=== PATIENT | female | born 1995 | race American Indian/Alaskan Native ===

== ENCOUNTER 2023-10-24 08:40 | Inpatient (IN) | payer OTHER ==
[2023-10-24 09:41] LABS: HEMATOCRIT 37.6 % (35.0-50.0); HEMOGLOBIN 12.7 g/dL (12.0-18.0); MCH 30.5 (27-36); MCHC 33.8 g/dl (30-36); MCV 90.1 fl (81-99); RBC 4.17 M/ul (4.3-5.7); RDW 14.9 (10.5-15.0)
--- NOTE | 2023-10-24 09:44 | PR ---
[facility] [address] [facility] [place], [place] [address] Signed Progress Notes IP Datetime Report Generated by HAILEY: 10/24/2023 09:44 PROGRESS NOTES: [id number] Impression: Normal Progression of Labor Procedures: Artificial ROM; Sterile Vag Exam Plan: Continue Present Management; Anesthesia Consult VITAL SIGNS: [id number] Vital Signs: Reviewed; Within Normal Limits EXAM: [id number] Dilatation: 7.0 Effacement: 80 Station: -2 Contractions: q 5 min MEMBRANES: [id number] Comments: Progressing well. Would like epidural. FETUS A: [id number] FHR Baseline: 150 Variability: Moderate 6-25bpm Accelerations: 15X15 Decelerations: Late FHR Category: Category I Presentation: Vertex FETUS B: [id number] Signing Physician: Britni Ross MD Copies: ~ *Electronically Signed* 10/24/23 0944 BRITNI ROSS MD PATIENT NAME: CATHERINE BURTON PROGRESS NOTE DATE OF : 93 PHYSICIAN: BRITNI ROSS MD RPT #: [id number] REPORT IS CONFIDENTIAL AND NOT TO BE RELEASED WITHOUT AUTHORIZATION
[2023-10-24] MEDS ORDERED: MAGNESIUM HYDROXIDE/AL HYDROX 30 ML CUP PO PRN ×2 (09:45→11:30)
[2023-10-24] MEDS ORDERED: CALCIUM CARBONATE 500 MG CHEW PO PRN ×2 (09:45→11:30)
[2023-10-24] MEDS ORDERED: OXYTOCIN/DEXTROSE 5% 20 UNITS/100 ML BAG IV SCH (09:45)
[2023-10-24] MEDS ORDERED: fentaNYL citrate 100 MCG/2 ML VIAL ONE (09:56)
[2023-10-24] MEDS ORDERED: ROPIVACAINE 0.2% 200 ML BAG ONE (09:56)
[2023-10-24 10:06] LABS: AMPHETAMINES, URINE NEGATIVE (NEGATIVE); BARBITURATES, URINE NEGATIVE (NEGATIVE); BENZODIAZEPINE, URINE NEGATIVE (NEGATIVE); BUPRENORPHINE, URINE NEGATIVE (NEGATIVE); CANNABINOID, URINE NEGATIVE (NEGATIVE); COCAINE, URINE NEGATIVE (NEGATIVE); ECSTASY, URINE NEGATIVE (NEGATIVE); FENTANYL, URINE NEGATIVE (NEGATIVE); METHADONE, URINE NEGATIVE (NEGATIVE); OPIATES, URINE NEGATIVE (NEGATIVE); OXYCODONE, URINE NEGATIVE (NEGATIVE); PHENCYCLIDINE, URINE NEGATIVE (NEGATIVE)
[2023-10-24 10:16] LABS: ABO O; ANTIBODY SCREEN NEGATIVE; RH POSITIVE
--- NOTE | 2023-10-24 10:27 | PR ---
[facility] [address] [facility] [place], [place] [address] Signed Progress Notes IP Datetime Report Generated by HAILEY: 10/24/2023 10:27 PROGRESS NOTES: [id number] Impression: Normal Progression of Labor Procedures: Sterile Vag Exam Plan: Continue Present Management VITAL SIGNS: [id number] Vital Signs: Reviewed; Within Normal Limits EXAM: [id number] Dilatation: 8.5 Effacement: 80 Station: 0 Contractions: q 2 to 3 min MEMBRANES: [id number] Comments: Comfortable after epidural. Progressing well. Will continue. FETUS A: [id number] FHR Baseline: 150 Variability: Moderate 6-25bpm Accelerations: 15X15 Decelerations: None FHR Category: Category I Presentation: Vertex FETUS B: [id number] Signing Physician: Britni Ross MD Copies: ~ *Electronically Signed* 10/24/23 1027 BRITNI ROSS MD PATIENT NAME: CATHERINE BURTON PROGRESS NOTE DATE OF : 93 PHYSICIAN: BRITNI ROSS MD RPT #: [id number] REPORT IS CONFIDENTIAL AND NOT TO BE RELEASED WITHOUT AUTHORIZATION
[2023-10-24] MEDS ORDERED: ROPIVACAINE 0.2% 200 ML BAG EPIDURAL SCH (10:30)
[2023-10-24] MEDS ORDERED: LACTATED RINGER'S 2,000 ML IV ONE (10:30)
[2023-10-24] MEDS ORDERED: ePHEDrine sulfate 5 MG/ML SYRINGE IV PRN (10:30)
[2023-10-24] MEDS ORDERED: LACTATED RINGER'S 500 ML IV PRN (10:30)
[2023-10-24] MEDS ORDERED: TRANEXAMIC ACID IN NACL,ISO-OS 0 ML IV ONE (11:11)
[2023-10-24 11:16] LABS: N. GONORRRHOEAE BY PCR NOT DETECTED (NOT DETECT)
[2023-10-24] MEDS ORDERED: METHYLERGONOVINE MALEATE 0.2 MG/ML AMP IM ONE (11:30)
[2023-10-24] MEDS ORDERED: WITCH HAZEL/GLYCERIN 1 EA PAD TOP PRN (11:30)
[2023-10-24] MEDS ORDERED: BENZOCAINE 60 ML AEROSOL TOP PRN (11:30)
[2023-10-24] MEDS ORDERED: ACETAMINOPHEN 325 MG TAB PO PRN (11:30)
[2023-10-24] MEDS ORDERED: OXYTOCIN/0.9 % SODIUM CHLORIDE 500 ML IV SCH (11:30)
[2023-10-24] MEDS ORDERED: IBUPROFEN 600 MG TAB PO PRN (11:30)
[2023-10-24] MEDS ORDERED: HYDROCORTISONE ACETATE 25 MG SUPP PR PRN (11:30)
[2023-10-24] MEDS ORDERED: MAGNESIUM HYDROXIDE 30 ML UDC PO PRN (11:30)
[2023-10-24] MEDS ORDERED: HYDROCODONE/ACETA 5/325 TAB PO PRN (11:30)
[2023-10-24] MEDS ORDERED: LIDOCAINE 2% VISCOUS 6 ML SYR TOP ONE ×2 (11:30)
--- NOTE | 2023-10-24 12:27 | PR ---
[facility] [address] [place], [place] [address] Signed PP Progress Notes Datetime Report Generated by HAILEY: 10/24/2023 12:26 SUBJECTIVE: [id number] Pain: Within Normal Limits Vital Signs: [id number] Vital Signs: Reviewed; Within Normal Limits Cardiovascular: Not Done Respiratory: Not Done Abdomen/Uterus: Abnormal Lochia: Normal Vulva/Perineum: Not Done Breasts: Not Done CVA Tenderness: Not Done Extremities: Not Done Incision: Not Applicable Progress: Not Applicable Exam Comments: Fundus firm, NT (epidural working well). Uterus explored w/ removal of clots. EBL 385 cc thus far including delivery IMPRESSION/PLAN/PROCEDURES: [id number] Other Impression: pp bleeding Other Plans: Cytotec po/IV pit Progress Notes: Had some increased bleeding. Mast placed and uterus explored w/ removal of clots. Uterus firm at U-3. Will continue close observation. Signing Physician: Britni Ross MD Copies: ~ *Electronically Signed* 10/24/23 1226 BRITNI ROSS MD PATIENT NAME: CATHERINE BURTON PROGRESS NOTE DATE OF : 93 PHYSICIAN: BRITNI ROSS MD RPT #: [id number] REPORT IS CONFIDENTIAL AND NOT TO BE RELEASED WITHOUT AUTHORIZATION
[2023-10-24] MEDS ORDERED: ondansetron HCL 4 MG/2 ML VIAL IV ONE (15:59)
[2023-10-24] MEDS ORDERED: DIPHENOXYLATE/ATROPINE 1 EA TAB PO ONE (15:59)
[2023-10-24] MEDS ORDERED: miSOPROStoL 200 MCG TAB XX ONE (15:59)
[2023-10-24 18:40] VITALS: BP 114/70
[2023-10-24] MEDS ORDERED: SENNOSIDES/DOCUSATE 1 EA TAB PO SCH (21:00)
[2023-10-25 05:18] LABS: HEMATOCRIT 32.8 % (35.0-50.0); HEMOGLOBIN 11.1 g/dL (12.0-18.0); MCH 30.6 (27-36); MCHC 33.7 g/dl (30-36); MCV 90.9 fl (81-99); RBC 3.61 M/ul (4.3-5.7); RDW 14.9 (10.5-15.0)
--- NOTE | 2023-10-25 07:57 | PR ---
[facility] [address] [facility] [place], [place] [address] Signed PP Progress Notes Datetime Report Generated by HAILEY: 10/25/2023 07:57 SUBJECTIVE: [id number] Pain: Within Normal Limits Vital Signs: [id number] Vital Signs: Reviewed; Within Normal Limits Cardiovascular: Not Done Respiratory: Not Done Abdomen/Uterus: Abnormal Lochia: Normal Vulva/Perineum: Not Done Breasts: Not Done CVA Tenderness: Not Done Extremities: Normal Incision: Not Applicable Progress: Normal Exam Comments: Fundus firm, NT @ U-2. H/H 11.1/32.8, WBC 12.3, plat 274k IMPRESSION/PLAN/PROCEDURES: [id number] Impression: Normal Progression Other Impression: pp bleeding Plan: Continue Present Management Other Plans: Cytotec po/IV pit Progress Notes: Doing well. Will continue present care. Signing Physician: Britni Ross MD Copies: ~ *Electronically Signed* 10/25/23 0757 BRITNI ROSS MD PATIENT NAME: CATHERINE BURTON PROGRESS NOTE DATE OF : 93 PHYSICIAN: BRITNI ROSS MD RPT #: [id number] REPORT IS CONFIDENTIAL AND NOT TO BE RELEASED WITHOUT AUTHORIZATION
--- NOTE | 2023-10-26 08:21 | PR ---
[facility] [address] [facility] [place], [place] [address] Signed PP Progress Notes Datetime Report Generated by CPAnjum: 10/26/2023 08:21 SUBJECTIVE: [id number] Pain: Within Normal Limits Vital Signs: [id number] Vital Signs: Reviewed; Within Normal Limits Cardiovascular: Not Done Respiratory: Not Done Abdomen/Uterus: Abnormal Lochia: Normal Vulva/Perineum: Not Done Breasts: Not Done CVA Tenderness: Not Done Extremities: Normal Incision: Not Applicable Progress: Normal Exam Comments: Fundus firm, NT @ U-2. IMPRESSION/PLAN/PROCEDURES: [id number] Impression: Normal Progression Other Impression: pp bleeding Plan: Discharge Other Plans: Cytotec po/IV pit Procedures: None Progress Notes: Doing well. She is ready for D/C. Baby does not have any f/u scheduled at [facility] for the left renal dilation. This will need to be set up by peds. Signing Physician: Britni Ross MD Copies: ~ *Electronically Signed* 10/26/23 08 BRITNI ROSS MD PATIENT NAME: CATHERINE BURTON PROGRESS NOTE DATE OF : 93 PHYSICIAN: BRITNI ROSS MD RPT #: [id number] REPORT IS CONFIDENTIAL AND NOT TO BE RELEASED WITHOUT AUTHORIZATION
== END 2023-10-26 11:50 | disposition home or self-care (01) | DRG 807 ==
LOC: FBCO 08:40 → FBC 09:00
PROVIDERS: ADMIT Obstetrics & Gynecology; ATTEND Obstetrics & Gynecology
PROC: 10E0XZZ Delivery of Products of Conception, External Approach (ICD-10-PCS; principal; 2023-10-24)
PROC: 3E0R3BZ Introduction of Anesthetic Agent into Spinal Canal, Percutaneous Approach (ICD-10-PCS; 2023-10-24)
PROC: 00HU33Z Insertion of Infusion Device into Spinal Canal, Percutaneous Approach (ICD-10-PCS; 2023-10-24)
PROC: 10907ZC Drainage of Amniotic Fluid, Therapeutic from Products of Conception, Via Natural or Artificial Opening (ICD-10-PCS; 2023-10-24)
DX: O80 Encounter for full-term uncomplicated delivery (principal); Z37.0 Single live birth; O72.1 Other immediate postpartum hemorrhage; Z3A.38 38 weeks gestation of pregnancy
CPT/HCPCS: 01960; 36415; 80307; 85027; 86850; 86900; 86901; A9270; J2210; J2405; J2590; J2795; J3010; J7121